=== PATIENT | female | born 1990 | race Caucasian/White ===

== ENCOUNTER 2021-03-26 10:03 | Day surgery (SDC) | payer OTHER, SELFPAY ==
[~2021-03-26] VITALS: Ht 165.1 cm; Wt 103.0 kg
[2021-03-26] MEDS ORDERED: BUPIVACAINE-MPF/EPI 0.25% 30 ML VIAL INJ ONE (11:24)
[2021-03-26] MEDS ORDERED: LIDOCAINE MPF 1% 10 ML ONE (11:24)
[2021-03-26] MEDS ORDERED: NEOSTIGMINE 1:1000 10 MG/10 ML VIAL ONE (12:10)
[2021-03-26] MEDS ORDERED: PROPOFOL 200 MG/20 ML VIAL IV ONE (12:10)
[2021-03-26] MEDS ORDERED: SUCCINYLCHOLINE CHLORIDE 200 MG/10 ML VIAL IVP ONE (12:10)
[2021-03-26] MEDS ORDERED: GLYCOPYRROLATE 0.2 MG/ML VIAL ONE (12:10)
[2021-03-26] MEDS ORDERED: KETOROLAC 30 MG/ML VIAL ONE (12:10)
[2021-03-26] MEDS ORDERED: MIDAZOLAM 2 MG/2 ML VIAL ONE (12:10)
[2021-03-26] MEDS ORDERED: SEVOFLURANE 250 ML BTL INH ONE (12:10)
[2021-03-26] MEDS ORDERED: fentaNYL citrate 0.05 MG/ML VIAL ONE (12:10)
[2021-03-26] MEDS ORDERED: LIDOCAINE 2% 100 MG/5 ML SYR IVP ONE (12:10)
[2021-03-26] MEDS ORDERED: LACTATED RINGERS 1,000 ML IV SCH (12:40)
[2021-03-26] MEDS ORDERED: diphenhydrAMINE 50 MG/ML VIAL IVP PRN (12:40)
[2021-03-26] MEDS ORDERED: ONDANSETRON 4 MG/2 ML VIAL IVP PRN (12:40)
[2021-03-26] MEDS ORDERED: MEPERIDINE 25 MG/ML SYR IVP PRN (12:40)
[2021-03-26] MEDS ORDERED: ONDANSETRON 4 MG/2 ML VIAL IV PRN (13:45)
[2021-03-26] MEDS ORDERED: HYDROmorphone 1 MG/ML AMP IVP PRN (13:45)
[2021-03-26] MEDS ORDERED: HYDROcodone/APAP 5/325 MG 1 TAB TAB PO PRN (13:45)
[2021-03-26] MEDS ORDERED: MORPHINE SULFATE 4 MG/ML SYR IV PRN (13:45)
[2021-03-26] MEDS ORDERED: MORPHINE SULFATE 2 MG/ML SYR IVP PRN (13:45)
[2021-03-26] MEDS: HYDROmorphone 1 MG/ML AMP IVP PRN ×4 (14:00→14:30)
[2021-03-26] MEDS ORDERED: HYDROmorphone PFS 2 MG/ML SYR ONE (14:16)
== END 2021-03-26 16:12 | disposition home or self-care (01) ==
LOC: MDS 10:03 → MMU 10:08 → MDS 16:12
PROVIDERS: ATTEND Surgery
DX: K80.12 Calculus of gallbladder with acute and chronic cholecystitis without obstruction (principal); E66.9 Obesity, unspecified; Z68.37 Body mass index [BMI] 37.0-37.9, adult; Z20.828 Contact with and (suspected) exposure to other viral communicable diseases
CPT/HCPCS: 36415; 47562; 71045; 82374; 86886; 86900; 86901; J0330; J0690; J1170; J1885; J2001; J2250; J2704; J2710; J3010; J3490; J7030; J7060; U0003